=== PATIENT | female | born 1955 | race Caucasian/White ===

== ENCOUNTER 2024-11-07 12:25 | Outpatient (CLI) | payer MEDICARE | END 2024-11-07 12:26 | disposition home or self-care (01) | LOC: CSHDTY/OP 12:25 | PROVIDERS: ATTEND Nurse Practitioner Family | DX: E66.9 Obesity, unspecified (principal); Z86.39 Personal history of other endocrine, nutritional and metabolic disease | CPT/HCPCS: 97802 ==

== ENCOUNTER 2025-05-22 09:46 | Outpatient (CLI) | payer MEDICARE | END 2025-05-22 09:47 | disposition home or self-care (01) | LOC: CSHMAMMO 09:46 | PROVIDERS: ATTEND Nurse Practitioner Family | DX: N63.10 Unspecified lump in the right breast, unspecified quadrant (principal) | CPT/HCPCS: 76642; 77065; G0279 ==